=== PATIENT | female | born 1965 ===

== ENCOUNTER 2021-09-07 18:21 | Emergency (ER) | payer MEDICAID ==
[~2021-09-07] VITALS: Ht 165.1 cm; Wt 90.9 kg
[2021-09-07 19:08] LABS: COVID AG,FIA SOURCE NASOPHARYNGEAL
[2021-09-07 19:30] LABS: INFLUENZA TYPE A NEGATIVE FOR TYPE A (NEGATIVE); INFLUENZA TYPE B NEGATIVE FOR TYPE B (NEGATIVE)
[2021-09-07] MEDS ORDERED: ACETAMINOPHEN 500 MG TABLET PO ONE (22:45)
[2021-09-07] MEDS ORDERED: FAMOTIDINE 20 MG TABLET PO ONE (22:45)
[2021-09-07] MEDS ORDERED: MAG HYDROX/AL HYDROX/SIMETH 30 ML SUSP UDCUP PO ONE (22:45)
[2021-09-07 22:47] VITALS: BP 121/71
== END 2021-09-07 23:30 | disposition home or self-care (01) ==
LOC: EMS 18:24
DX: B34.9 Viral infection, unspecified (principal); Z20.822 Contact with and (suspected) exposure to COVID-19; Z90.710 Acquired absence of both cervix and uterus; Z98.890 Other specified postprocedural states
CPT/HCPCS: 87426; 87804; 99284; C9803; U0003; Z7502; Z7610